=== PATIENT | male | born 1960 | race Caucasian/White ===

== ENCOUNTER 2021-06-25 00:16 | Day surgery (SDC) | payer MEDICARE, SELFPAY ==
[2021-05-23 13:31] VITALS: BMI 28.4
[2021-06-08 14:20] VITALS: BMI 29.0
--- NOTE | 2021-06-25 07:11 | WPDGICN ---
Assessment and Plan Assessment and plan (1) Dysphagia: Code(s): R13.10 - Dysphagia, unspecified Status: Acute Assessment and Plan: EGD with possible biopsy or dilatation or cautery. (2) Colon cancer screening: Code(s): Z12.11 - Encounter for screening for malignant neoplasm of colon Status: Acute Assessment and Plan: Colonoscopy with possible biopsy or polypectomy or cautery or injection of substances. GI Consult Note Consult date/time: 06/25/21 07:11 HPI: Kurtis Prince is a 60 year old male Who has had dysphagia for Both liquid and solid food. it will feel as though his throat is not letting it go down. Sometimes it will seem to go down the wrong way.He is also due for colon cancer screening. Review of Systems Review of Systems: All systems reviewed & are unremarkable except as noted in HPI and below PMFSH Past Medical History Medical History Anxiety Chronic pain COPD (chronic obstructive pulmonary disease) Obesity Social History Social History Years smoked: 45 Smoking status: Former smoker Tobacco type: cigarettes Alcohol intake: current Alcohol use details: 1 per month Substance use: current Substance use type: marijuana Other substance usage details: Daily-medical marijuana Last use: 05/22/21 Living arrangements: alone Spiritual care concerns: No Meds Home Medications and Allergies Home Medications Medication Instructions Recorded Confirmed Type atorvastatin [Lipitor] 10 mg PO HS 05/23/21 06/08/21 History cholecalciferol (vitamin D3) 125 mcg PO DAILY 05/23/21 06/08/21 History [Vitamin D3] fluticasone propion-salmeterol 1 inh INHALATION Q12H 05/23/21 06/08/21 History [Wixela Inhub] onwrgxzpzism-uil-xxiv-FA-vit K 1 tablet PO DAILY 05/23/21 06/08/21 History [Adults Multivitamin] naproxen 500 mg PO BID 05/23/21 06/08/21 History Allergies Allergy/AdvReac Type Severity Reaction Status Date / Time No Known Allergies Allergy Verified 06/25/21 07:48 Exam Const: General: alert Orientation/consciousness: patient oriented x3 Resp: Auscultation: clear to auscultation bilaterally Cardio: Rhythm: regular rhythm GI: GI Palp: Yes Soft to palpation and No Tenderness to palpation present (GI) Neuro: General: patient oriented x3
[2021-06-25 07:48] VITALS: BP 150/98; PULSE 77; RESP 18; TEMP 36.3; O2SAT 99; BMI 29.2
--- NOTE | 2021-06-25 07:59 | WPDANESEPPF ---
Anes - Initial Pre Proc Eval Procedure: Operation Date: 06/25/21 08:30 Proposed Procedures p Esophagogastroduodenoscopy & Screening Colonoscopy - Leonel Vazquez MD Date/Time: 06/25/21 07:59 Surgeon: Leonel Vazquez MD Pre Op Diagnosis: dysphagia, neoplasm screening Patient Data Age: 60 Gender: M Height: 1.85 m Weight: 100.6 kg Last Vital Signs Temp 36.3 C L 06/25/21 07:48 Pulse 77 06/25/21 07:48 Resp 18 06/25/21 07:48 BP 150/98 H 06/25/21 07:48 Pulse Ox 99 06/25/21 07:48 Allergies Allergy/AdvReac Type Severity Reaction Status Date / Time No Known Allergies Allergy Verified 06/25/21 07:48 Home Medications Medication Instructions Recorded Confirmed Type atorvastatin [Lipitor] 10 mg PO HS 05/23/21 06/08/21 History cholecalciferol (vitamin D3) 125 mcg PO DAILY 05/23/21 06/08/21 History [Vitamin D3] fluticasone propion-salmeterol 1 inh INHALATION Q12H 05/23/21 06/08/21 History [Wixela Inhub] tslttgayrwzr-bwp-czmm-FA-vit K 1 tablet PO DAILY 05/23/21 06/08/21 History [Adults Multivitamin] naproxen 500 mg PO BID 05/23/21 06/08/21 History Patient hx anesthesia problems: none Family hx anesthesia problems: none Results Review: All pre-operative results and documents have been reviewed as part of the pre-operative evaluation. [facility] Past Medical History Medical History (Updated 06/25/21 @ 08:04 by Darren Liu MD) Anxiety Chronic pain COPD (chronic obstructive pulmonary disease) Obesity Social History Social History Years smoked: 45 Smoking status: Former smoker Tobacco type: cigarettes Alcohol intake: current Alcohol use details: 1 per month Substance use: current Substance use type: marijuana Other substance usage details: Daily-medical marijuana Last use: 05/22/21 Living arrangements: alone Spiritual care concerns: No Anes - Eval Final PreProcedure Day of Procedure 06/25/21 07:59 Patient weight: obese Heart: regular rate and rhythm Lungs: clear to auscultation Airway: Mallampati scale class II Neurological: alert and oriented Last oral intake: >/= 8 hours ASA classification: IV Emergent: no Anesthetic plan: proceed Anesthesia type and monitoring: general GIVS and standard monitoring Results Review: All pre-operative results and documents have been reviewed as part of the pre-operative evaluation. Informed Consent: The patient's anesthetic plan and its attendant risks and benefits were discussed with the patient/family/POA. Questions were solicited and answers provided to the satisfaction of the patient/family/POA.
[2021-06-25] MEDS: LACTATED RINGERS 1,000 ML 150 ML IV CONT (08:04)
--- NOTE | 2021-06-25 08:40 | SUR.OPER ---
EGD END: 832 COLONOSCOPY START: 838
[2021-06-25 08:52] VITALS: BP 129/82; PULSE 59; RESP 20; O2SAT 97
[2021-06-25 09:02] VITALS: BP 152/108; PULSE 54; RESP 14; O2SAT 100
[2021-06-25 09:12] VITALS: BP 155/94; PULSE 54; RESP 19; O2SAT 100
== END 2021-06-25 09:19 | disposition home or self-care (01) ==
PROVIDERS: PCP Internal Medicine; Visit Provider Internal Medicine Gastroenterology
PROC: 0DJ08ZZ Inspection of Upper Intestinal Tract, Via Natural or Artificial Opening Endoscopic (ICD-10-PCS; CPT 43235; principal; 2021-06-25 08:30)
DX: Z12.11 Encounter for screening for malignant neoplasm of colon (principal); Z86.010 Personal history of colon polyps; R13.10 Dysphagia, unspecified; K21.00 Gastro-esophageal reflux disease with esophagitis, without bleeding; K29.70 Gastritis, unspecified, without bleeding; J44.9 Chronic obstructive pulmonary disease, unspecified; F41.9 Anxiety disorder, unspecified; E66.9 Obesity, unspecified; Z68.29 Body mass index [BMI] 29.0-29.9, adult; Z87.891 Personal history of nicotine dependence; F12.90 Cannabis use, unspecified, uncomplicated
CPT/HCPCS: 43239; G0105; 87081; 88305; 88313; J2704; J7120

== ENCOUNTER 2024-08-30 11:00 | Outpatient (RCR) | payer MEDICARE, SELFPAY ==
--- NOTE | 2024-07-26 08:54 | OPREHPOC ---
Outpatient Therapy Plan of Care This is a Multidisciplinary Plan of Care that may contain components documented by all disciplines (PT, OT, and ST.) PT Problem 1 PT Problem #1 Knowledge Deficit PT Goal 1 Goal / Goal Update 1*independent with HEP 2* correct body mechanics with lifting from the floor Target Visit 8 PT Problem 2 PT Problem #2 Pain PT Goal 1 Goal / Goal Update 1* pt report pain rating at worst of L hip 2/10 2* pt report with sleeping, awaken 2x/night due to hip pain Target Visit 8 PT Problem 3 PT Problem #3 Impaired Strength PT Goal 1 Goal / Goal Update *increase strength of L hip to improve stability to joint 1* abduction 4/5 2* extension 4/5 Target Visit 8 PT Problem 4 PT Problem #4 Impaired Flexibility PT Goal 1 Goal / Goal Update *increase L hip flexibility, to improve muscle length of joint & symmetry with R hip: 1* hamstring length with supine SLR 55' 2* anterior hip/quad length with prone knee flexion 125' Target Visit 8
--- NOTE | 2024-07-26 08:54 | PTOPEVAL1 ---
Assessment and note entered by Monica Alcantara, PT Evaluation Information Assessment Status Evaluation ICD-10 Condition Codes (PT) Pain in left hip M25.552 weakness Other ICD-10 Condition Codes ( L trochanteric bursitis M70.62 PT) Onset Jul 12 2024 Subjective Information walking on vacation, hip pain onset and increased; have a cane and used some, it helped; now pain is less; have been resting and not doing much; not using cane anymore; wx ray of L hip- mild narrowing, mild degenerative changes in acetabulum & femoral head History: R THR, chronic back pain activity: ambulate without device; retired filling station laborer/disability- back and shoulder; independent with home and self care tasks- frequent rests due to pain; Reported Pain Level Pain Score Self Report Additional Pain Score Comments pain range in the past week: 0-4/10:L lateral hip, posterior hip increase pain: lie on L side, walking 400' decrease pain: sit, rest, tylenol arthritis,ice no pain when first wake up in AM; awaken from sleeping, when roll onto L side, 6 x/ night history of chronic low back pain Assessment PT Clinical Summary Kurtis has the diagnosis of L hip pain/ trochanteric bursitis. He reports onset a few weeks ago with lifting a suitcase and walking on the beach. Pain has decreased now. LE functional scale self rating of 49% limitation in activity level. Pain is increased with lying on his L side, awakening him from sleep ~ 6x/night and walking over 400'. History includes R THR, chronic LBP. With the evaluation: he has tightness of L hamstring and anterior hip/quad muscles, with weakness of hip abductor and extension muscles. Skilled PT services are indicated for modalities to decrease pain, therapeutic exercises to increase hip strength and flexibility and education for HEP. Plan of Care Interventions Electrical Stimulation,Hot Pack/Cold Pack,Manual Therapy,Neuro Re-education,Patient/Caregiver Education,Therapeutic Activities,Therapeutic Exercise,Ultrasound,Other Other Interventions taping PT Services Indicated Yes Treatment Frequency and 1-2x/wk for 8 visits Duration These treatments will address the objective and functional deficits as defined above. The patient will be advanced safely and appropriately in order for the patient to progress towards his/her prior level of function. Additional exercises will be introduced and as well as a comprehensive home exercise program upon discharge, if needed, ?to ensure carryover of functional gains achieved in the clinic. This treatment plan has been reviewed and agreement upon by the patient.
--- NOTE | 2024-08-30 11:37 | OPREHPOC ---
Outpatient Therapy Plan of Care This is a Multidisciplinary Plan of Care that may contain components documented by all disciplines (PT, OT, and ST.) PT Problem 1 PT Problem #1 Knowledge Deficit PT Goal 1 Goal / Goal Update 1*independent with HEP 2* correct body mechanics with lifting from the floor 08-30-24 d/c goals met Target Visit 8 Progress Met PT Problem 2 PT Problem #2 Pain PT Goal 1 Goal / Goal Update 1* pt report pain rating at worst of L hip 04/19 2* pt report with sleeping, awaken 2x/night due to hip pain 08-30-24 d/c goals met Target Visit 8 Progress Met PT Problem 3 PT Problem #3 Impaired Strength PT Goal 1 Goal / Goal Update *increase strength of L hip to improve stability to joint 1* abduction 4/5 2* extension 4/5 08-30-24 d/c goals met Target Visit 8 Progress Met PT Problem 4 PT Problem #4 Impaired Flexibility PT Goal 1 Goal / Goal Update *increase L hip flexibility, to improve muscle length of joint & symmetry with R hip: 1* hamstring length with supine SLR 55' 2* anterior hip/quad length with prone knee flexion 125' 08-30-24 d/c goal 1 met; #2 improved to 120' Target Visit 8 Progress Partially Met
--- NOTE | 2024-08-30 11:37 | PTOPDC ---
Assessment and note entered by Monica Alcantara, PT Assessment Status Discharge ICD-10 Condition Codes (PT) Pain in left hip M25.552 Other ICD-10 Condition Codes ( L trochanteric bursitis M70.62 PT) Onset Jul 12 2024 Subjective Information hip is absolutely better; have been doing the exercises at home; Reported Pain Level Pain Score 0: Self Report Additional Pain Score Comments pain range in the past week 0-1/10; with sleeping, no awakening due to pain in hip Assessment PT Clinical Summary Kurtis has received 6 PT sessions. Compared to the initial evaluation, he has improved in all areas: now with pain 0-1/10; self assessment with LE functional scale rating of 25% limitation in activity level; increase flexibility & strength of hips and education for HEP and body mechanics. The goals were achieved. Discharge PT. He is to continue with HEP and monitor posture and body mechanics. Plan of Care PT Services Indicated No
== END 2024-08-30 13:57 | disposition home or self-care (01) ==
LOC: ANHPT 11:00
PROVIDERS: PCP Internal Medicine; Visit Provider Physician Assistant Surgical
DX: M70.62 Trochanteric bursitis, left hip (principal)
CPT/HCPCS: 97110; 97140; 97161; 97530